=== PATIENT | female | born 1990 | race Caucasian/White ===

== ENCOUNTER 2018-02-28 13:19 | Emergency (ER) | payer MEDICAID, OTHER ==
[~2018-02-28] VITALS: Ht 165.1 cm; Wt 66.0 kg
[~2018-02-28 13:19] MED LIST: CALC200T3 PO; CEFD300C37 PO; IBUP-1223 PO; ONDA4TAB12 PO; OXYC-302 PO; PREN1TAB60 PO
[2018-02-28 13:22] VITALS: BP 120/84
== END 2018-02-28 14:09 | disposition home or self-care (01) ==
LOC: ED 14:00
DX: R09.81 Nasal congestion (principal)
CPT/HCPCS: 99283